=== PATIENT | male | born 1950 | race Caucasian/White ===

== ENCOUNTER 2017-06-09 10:06 | Emergency (ER) | payer MEDICARE, OTHER, SELFPAY ==
[2017-06-09 10:07] VITALS: BP 164/91; PULSE 120; RESP 20; TEMP 37.1; O2SAT 97; BMI 38.0
--- NOTE | 2017-06-09 10:15 | EKG12_ITS ---
Test Reason : CP Blood Pressure : / mmHG Vent. Rate : 105 BPM Atrial Rate : 105 BPM P-R Int : 140 ms QRS Dur : 080 ms QT Int : 338 ms P-R-T Axes : 045 017 042 degrees QTc Int : 446 ms Sinus tachycardia Confirmed by CRISTINO BEEBE, ALIDA ([id number]), editorial assistant MAO AQUINO ([id number]) on 06/11/2017 1:15:29 PM Referred By: ROMINA/RICARDO Confirmed By:ALIDA GREGG MD
--- NOTE | 2017-06-09 10:20 | RAD_ITS ---
STUDY: X-RAY CHEST REASON FOR EXAM: Male, 67 years old. Chest pain and chest pressure. TECHNIQUE: Single AP portable view of the chest. COMPARISON: None. FINDINGS: EKG electrodes are seen. Mild increased linear markings at the left lung base suggestive of left basilar atelectasis and/or scarring. There is no demonstrated pleural abnormality. Normal size heart. Normal mediastinum and roxy. Normal visualized pulmonary arteries. There is atherosclerotic tortuosity of the aortic arch and descending thoracic aorta. Mild dextroscoliosis. Healed right midclavicular fracture with deformity. There is no demonstrated abnormality of the visualized soft tissue structures of the upper abdomen. RAD/Chest 1 View (Portable) IMPRESSION: Mild increased markings at the left lung base suggestive linear atelectasis and/or scarring. Electronically Signed: Nelson Dwyer MD at 10:40 EST Tel [phone], Service support ,
--- NOTE | 2017-06-09 10:20 | ED.VISSUMM ---
- ER Visit Summary Date of Service: 06/09/17 Chief Complaint: Chest pain History of Present Illness: The patient is a 67 M who reports a soreness across his chest for the past 3-4 days. Patient states pain is worse with movement or with palpation. He does have increased pain with a deep breath but denies feeling short of breath. He reports having a stress test at [facility] a couple months ago that was normal. Past history significant for liver transplant in 2009. Physical Examination: Vital signs include a blood pressure 164/91, temperature 98.8, heart rate 120, respiratory rate 20, pulse ox 97% on room air. The time of my examination his heart rate is 105. Head neck examination is unremarkable. Heart is regular but slightly tachycardic. Lung sounds are clear. He does have reproducible chest wall tenderness over the sternal area. Extremity examination reveals strong distal pulses throughout. Test Results: EKG is sinus tach at 105 with no sign of acute ischemia. Portal chest x-ray shows mild increased markings the left lung base suggestive of linear atelectasis or scarring. CBC was white count 12.2 with 80% neutrophils. Chemistry studies are unremarkable. LFTs are significant only for an alk phos of 158. Troponin is less than 0.02. Emergency Department Course and Treatment: Patient was given aspirin along with morphine and Zofran. On repeat evaluation patient's heart rate is in the upper 80s. He is resting comfortably. I was able to get copies of his stress echo from January 07, 2017. This was normal. As the patient has reproducible chest wall pain, 3 days of pain with negative labs and EKG, and a negative stress test 5 months ago, I do not feel he needs to be admitted for further cardiac evaluation. I do feel his symptoms are consistent with chest wall strain. This was discussed with patient and family at bedside. Treatment Plan: [] Disposition: Discharge Impression: Chest wall pain This note was generated with [employer] dictation software. It may contain incorrect words, spelling, and punctuation that were not noted in review of the chart prior to signing ED Disposition - Plan for ED Patient: Disposition: Home or Assisted Living Chief Complaint: Chest Pain Instructions: ED Strain Chest Wall Referrals: Usman Langfodr MD [Primary Care Provider] - 1-2 Weeks Additional Instructions: Return to ED immediately for worsening symptoms or if any other concerns arise.
[2017-06-09] MEDS: Aspirin 81 MG TAB.CHEW 324 MG PO (10:40)
[2017-06-09] MEDS: 0.9% Normal Saline 1,000 ML 150 ML IV (10:42)
[2017-06-09] MEDS: Ondansetron 4 MG/2 ML Vial IV (10:42)
[2017-06-09 10:48] VITALS: BP 136/84; PULSE 114; RESP 18; O2SAT 98; O2SAT 99
[2017-06-09 11:04] LABS: Absolute Lymphocyte Count 1.16 X10^3/ul (0.83-4.51); Absolute Neutrophil Count 9.8 X10^3/uL (2.0-7.7); Basophil# 0.03 X10^3/uL; Basophil% 0.2 % (0-1); Eosinophils% 0.8 % (0-5); Hematocrit 42.3 % (40-54); Hemoglobin 14.3 g/dl (13.0-16.5); Lymphocyte # 1.16 X10^3/ul (4.0); Lymphocyte % 9.5 % (19-41); Mean Corp Hgb Conc 33.8 g/gl (32-36); Mean Corpuscular Hgb 26.4 pg (27.0-32.0); Mean Corpuscular Volume 78.2 fL (80-94); Mean Platelet Vol. 10.9 fl (6.2-12.0); Monocyte# 1.09 X10^3/uL; Monocyte% 8.9 % (0-10); Neutrophil # 9.77 X10^3/uL (2.7-7.7); Neutrophil % 80.3 % (47-70); Platelet Count 184 K/mm3 (150-450); RBC Distribution Width CV 14.9 % (11.6-14.6); RBC Distribution Width SD 42.4 fl (35.1-43.9); Red Blood Count 5.41 M/mm3 (4.6-6.2); White Blood Count 12.2 K/mm3 (4.4-11.0)
[2017-06-09 11:06] LABS: POSITIVE COUNT NO; POSITIVE DIFFERENTIAL NO; POSITIVE MORPHOLOGY NO
[2017-06-09 11:14] LABS: AST(SGOT) 36 U/L (15-37); Alanine Aminotransfer ALT/SGPT 48 U/L (16-61); Albumin, Serum 3.4 g/dL (3.2-5.0); Alkaline Phosphatase 158 U/L (45-117); Anion Gap 8 (5-15); BUN 18 mg/dL (7-18); BUN/Creat Ratio 16.4 RATIO (10-20); Bilirubin, Direct 0.22 mg/dL (0.00-0.30); Calcium,Total 8.4 mg/dL (8.5-10.1); Chloride 103 mmol/L (98-107); EST Glomerular Filtration Rate 71 mL/min (>60); Est Glom Filt Rate - Afr Amer 86 mL/min (>60); Estimated Creatinine Clearance 72.51 ml/min; Globulin 4.7 g/dL (2.2-4.2); Glucose 118 mg/dL (74-106); Protein, Total 8.1 g/dL (6.4-8.2); Sodium Level 136 mmol/L (136-145)
--- NOTE | 2017-06-09 11:52 | ED.DEP ---
ED Disposition - Plan for ED Patient: Disposition: Home or Assisted Living Chief Complaint: Chest Pain Instructions: ED Strain Chest Wall Referrals: Usman Langford MD [Primary Care Provider] - 1-2 Weeks Additional Instructions: Return to ED immediately for worsening symptoms or if any other concerns arise.
[2017-06-09 11:59] VITALS: BP 100/85; PULSE 96; RESP 18; O2SAT 100
== END 2017-06-09 12:00 | disposition home or self-care (01) ==
PROVIDERS: Emergency Provider Emergency Medicine; Family Provider Internal Medicine; PCP Internal Medicine
DX: R07.89 Other chest pain (principal); N40.0 Benign prostatic hyperplasia without lower urinary tract symptoms; M54.9 Dorsalgia, unspecified; G47.33 Obstructive sleep apnea (adult) (pediatric); K21.9 Gastro-esophageal reflux disease without esophagitis; E66.9 Obesity, unspecified; Z72.0 Tobacco use; Z79.899 Other long term (current) drug therapy; Z94.4 Liver transplant status
CPT/HCPCS: 36415; 71045; 80048; 80076; 84484; 85025; 93005; 96361; 96374; 96375; 99284; J7030; A4216; J2405

== ENCOUNTER 2018-08-07 08:15 | Emergency (ER) | payer MEDICARE, OTHER, SELFPAY ==
[2018-08-07 08:16] VITALS: BP 165/102; PULSE 91; RESP 20; TEMP 36.8; O2SAT 96; BMI 37.3
--- NOTE | 2018-08-07 08:33 | ED.DCSUM_ITS ---
- ER Visit Summary Date of Service: 08/07/18 Chief Complaint: Sore throat History of Present Illness: The patient is a [address] Langford. He reports his sore throat began yesterday. He has had a subjective fever and sweats. Reports that his throat pain is 5 out of 10 severity. He also complain s of nasal congestion and sinus drainage. He denies any cough or shortness of breath. Does report is been nauseated from the sinus drainage and had dry heaves. No abdominal pain. No vomiting or diarrhea. Is a headache is 5-10 severity. Of note the patient has a history of a liver transplant 8 years ago at [facility]. He is currently on Prograf and Bactrim. Physical Examination: Vitals: Stable. Afebrile. General: Well-nourished and well-developed. Head: Normocephalic atraumatic. HEENT: Pharyngeal erythema. No tonsillar exudate or enlargement. No peritonsillar abscess. He does have tender anterior lymphadenopathy. Neck: Supple, No JVD. Nontender. Cardiovascular: Regular rate and rhythm. No murmurs. Respiratory: No respiratory distress. Clear to auscultation bilaterally. Abdominal: Soft, nontender, nondistended, normal bowel sounds. No guarding, rebound, or peritoneal signs. Back: Nontender. Extremities: Nontender, no edema. Skin: Normal color, no rash. Neurologic: Alert and oriented ?3. Cranial nerves II through XII are intact. Normal strength and sensation. Psych: Normal affect. Emergency Department Course and Treatment: I had a prolonged discussion with the patient about the utility of a rapid strep. He would like to be on antibiotics regardless of the results of the rapid strep while he waits for the throat culture. Because of this this was not obtained. The patient was given a dose of oxycodone and amoxicillin p.o. Treatment Plan: Patient will be discharged on amoxicillin. Instructed to follow-up his primary care physician 1 week if not improving. Return to the emergency department for any worsening symptoms. Disposition: To home in improved and stable condition. Impression: 1. Pharyngitis. 2. History of liver transplant on immunosuppressants. This note was generated with [employer] dictation software. It may contain incorrect words, spelling, and punctuation that were not noted in review of the chart prior to signing ED Disposition - Plan for ED Patient: Disposition: Home or Assisted Living Instructions: ED Strep Pharyngitis Poss Prescriptions: Amoxicillin 500 mg PO TID #30 tablet Referrals: Usman Langford MD [Primary Care Provider] - 1 Week if not improving
[2018-08-07] MEDS: oxyCODONE 5 MG Tablet PO (08:50)
[2018-08-07] MEDS: AMOXICILLIN 500 MG CAPSULE PO (08:50)
== END 2018-08-07 08:57 | disposition home or self-care (01) ==
LOC: ED 08:51
PROVIDERS: Emergency Provider Emergency Medicine; Family Provider Internal Medicine; PCP Internal Medicine
DX: J02.9 Acute pharyngitis, unspecified (principal); R51 Headache; R11.0 Nausea; K21.9 Gastro-esophageal reflux disease without esophagitis; Z72.0 Tobacco use; Z79.899 Other long term (current) drug therapy; Z86.19 Personal history of other infectious and parasitic diseases; Z94.4 Liver transplant status
CPT/HCPCS: 99283

== ENCOUNTER 2018-10-05 10:33 | Day surgery (SDC) | payer MEDICARE, OTHER, SELFPAY ==
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
[2018-10-05] VITALS (7 sets, daily range): BP systolic 88–159; BP diastolic 58–82; PULSE 73–85; RESP 16–18; TEMP 36.2–36.3; O2SAT 96–100; BMI 38.0
--- NOTE | 2018-10-05 12:51 | OP.ENDO_ITS ---
10/05/2018 Usman Langford [address] [place] [place] [address] Re : Colonoscopy procedure for Franc Lujan Dear Dr. Langford This procedure was performed on Friday, October 05, 2018. My impressions and recommendations are as follows: Impressions : - The entire examined colon is normal on direct and retroflexion views. - No specimens collected. Recommendations : - Discharge patient to home. - Resume previous diet. - Continue present medications. - Repeat colonoscopy in 5 years for surveillance. My findings are described in the full procedure note, which is enclosed. If I can be of further assistance, please feel free to contact me at Doctor phone number(s): , Work: . Sincerely, Sukhi Hernandez MD 10/05/2018 12:50:48 PM This report has been signed electronically.
== END 2018-10-05 13:45 | disposition home or self-care (01) ==
LOC: EN 10:35 → AC 10:36
PROVIDERS: Family Provider Internal Medicine; PCP Internal Medicine; Referring Provider Surgery; Visit Provider Surgery
PROC: 0DJD8ZZ Inspection of Lower Intestinal Tract, Via Natural or Artificial Opening Endoscopic (ICD-10-PCS; CPT 45378; principal; 2018-10-05 11:40)
DX: Z12.11 Encounter for screening for malignant neoplasm of colon (principal); Z86.010 Personal history of colon polyps; I12.9 Hypertensive chronic kidney disease with stage 1 through stage 4 chronic kidney disease, or unspecified chronic kidney disease; N18.3 Chronic kidney disease, stage 3 (moderate); E78.5 Hyperlipidemia, unspecified; I87.2 Venous insufficiency (chronic) (peripheral); G47.33 Obstructive sleep apnea (adult) (pediatric); G89.29 Other chronic pain; F43.21 Adjustment disorder with depressed mood; E66.9 Obesity, unspecified; Z79.899 Other long term (current) drug therapy; Z94.4 Liver transplant status; Z88.8 Allergy status to other drugs, medicaments and biological substances; Z87.891 Personal history of nicotine dependence; Z86.19 Personal history of other infectious and parasitic diseases
CPT/HCPCS: G0105; J7120

== ENCOUNTER 2019-03-06 08:48 | Emergency (ER) | payer MEDICARE, OTHER, SELFPAY ==
[2018-10-05 10:51] VITALS: BMI 38.0
[2019-03-06 08:49] VITALS: BP 159/95; PULSE 115; RESP 16; TEMP 36.1; O2SAT 97; BMI 37.0
--- NOTE | 2019-03-06 09:04 | RAD_ITS ---
STUDY: X-RAY - LEFT RADIUS AND ULNA REASON FOR EXAM: Male, 68 years old. Pain following a fall. TECHNIQUE: 2 view(s) of the forearm. COMPARISON: None. FINDINGS: There is no demonstrated soft tissue swelling. Normal visualized radius. Normal visualized ulna. RAD/Forearm 2 Views IMPRESSION: Normal x-ray examination of the radius and ulna. Electronically Signed: Nelson Dwyer, at 9:57 EST , Service support ,
--- NOTE | 2019-03-06 09:04 | RAD_ITS ---
STUDY: X-RAY - LEFT KNEE REASON FOR EXAM: Male, 68 years old. Pain following a fall. TECHNIQUE: 4 view(s) of the knee. COMPARISON: None. FINDINGS: Normal visualized distal femur. Normal visualized proximal tibia and fibula. Normal proximal tibiofibular articulation. Normal medial femorotibial compartment. Normal lateral femorotibial compartment. Normal patellofemoral articulation. Minimal joint effusion. RAD/Knee 4 or More Views IMPRESSION: Minimal joint effusion. Electronically Signed: Nelson Dwyer, at 9:58 EST , Service support ,
--- NOTE | 2019-03-06 09:04 | RAD_ITS ---
STUDY: X-RAY - LEFT HUMERUS REASON FOR EXAM: Male, 68 years old. Pain following a fall. TECHNIQUE: 2 view(s) of the humerus. COMPARISON: None. FINDINGS: Normal visualized humerus. There is no demonstrated fracture or osseous destructive process. There is no demonstrated soft tissue abnormality. RAD/Humerus min 2 Views IMPRESSION: Normal x-ray examination of the humerus. Electronically Signed: Nelson Dwyer, at 9:58 EST , Service support ,
--- NOTE | 2019-03-06 09:04 | RAD_ITS ---
STUDY: X-RAY - LUMBAR SPINE REASON FOR EXAM: Male, 68 years old. Low back pain following a fall. TECHNIQUE: 3 view(s) of the lumbar spine were obtained. COMPARISON: None FINDINGS: Normal lumbar lordosis. There is a levoscoliosis of the lumbar spine. There is a normal alignment of the vertebrae. Normal vertebral bodies and endplates. There is multi-level degenerative disc disease with multi-level disc space narrowing. Facet joint osteoarthritis. There is atherosclerotic calcification of the abdominal aorta without a demonstrated aneurysm. RAD/Lumbar Spine 2 or 3 Views IMPRESSION: Degenerative changes of the spine, as detailed above. Levoscoliosis. Electronically Signed: Nelson Dwyer, at 10:00 EST , Service support ,
--- NOTE | 2019-03-06 09:05 | ED.DCSUM_ITS ---
History of Present Illness Chief Complaint: Fall Detail of Chief Complaint: Fall down 5 steps Informant: Patient Onset: Hours - 5 hours prior to arrival Current Severity: Moderate Maximum Severity: Moderate Narrative: On 5 steps in his home earlier this morning. He is complaining of pain to his left arm, right shoulder, back, and left knee. He states he did strike his head but he has no headache and there was no loss of consciousness. He does not take anticoagulants. He has been able to ambulate and is able to use both arms. - Past Medical History (1) Liver transplant recipient Status: Chronic (2) GERD (gastroesophageal reflux disease) Status: Chronic (3) BPH (benign prostatic hyperplasia) Status: Chronic (4) Back pain Status: Chronic Past Medical History - Allergies and Home Meds Allergies/Adverse Reactions: Allergies trazodone Allergy (Verified 03/06/19 08:49) Nausea/Vom/Diarrhea Primary Care Physician: Usman Langford MD [Primary Care Provider] - Prior records reviewed: Yes Surgical History: - - Liver transplant Lives: Spouse/ Significant Other Smoking Status: Current every day smoker Review of Systems General: Denies: Chills, Fever Eyes: Denies: Visual changes - bilaterally ENT: Denies: Bilateral ear pain Cardiovascular: Denies: Chest pain Respiratory: Denies: Dyspnea, Cough Gastrointestinal: Denies: Abdominal pain, Vomiting Musculoskeletal: Reports: Back pain, Extremity Pain. Denies: Swelling Skin: Denies: Rash, Abrasions Neurological: Denies: Headache, Weakness, Parasthesia Hematologic: Denies: Easy bruising Physical Exam Vital Signs/Narrative: Vital Signs Temp Pulse Resp BP Pulse Ox 03/06/19 08:49 97.0 F L 115 H 16 159/95 H 97 Inital Vital Signs reviewed: Yes General: Well nourished, Well developed Head: Normocephalic ENT: Moist mucous membranes Neck: Supple, - - No C-spine tenderness Cardiovascular: Regular rate, Regular rhythm Respiratory: No distress, CTA bilaterally Abdomen: Soft, Nontender Extremities: - - Reproducible tenderness around the right shoulder with no obvious sign of dislocation. Strong distal pulses and strong hand grasp. Patient has diffuse tenderness of the distal left humerus and proximal left forearm. He is able to pronate and supinate without difficulty. Strong distal pulses are noted. Patient has tenderness around the left knee, worse over the infrapatellar tendon. Good range of motion and ligaments are tight on testing. Skin: Normal color Neurological: Alert, Oriented x3, Normal Strength, Normal Sensation Psychological: Normal affect Diagnostic/Tx/Re-eval Impressions Forearm X-Ray 03/06/19 09:04 IMPRESSION: Normal x-ray examination of the radius and ulna. Electronically Signed: Nelson Fierrojag, at 9:57 EST , Service support , Humerus X-Ray 03/06/19 09:04 IMPRESSION: Normal x-ray examination of the humerus. Electronically Signed: Nelson Reymundo, at 9:58 EST , Service support , Knee X-Ray 03/06/19 09:04 IMPRESSION: Minimal joint effusion. Electronically Signed: Nelson Reymundo, at 9:58 EST , Service support , Lumbar Spine X-Ray 03/06/19 09:04 IMPRESSION: Degenerative changes of the spine, as detailed above. Levoscoliosis. Electronically Signed: Nelson Reymundo, at 10:00 EST , Service support , Shoulder X-Ray 03/06/19 09:05 IMPRESSION: No acute abnormality is seen. Nonhealed right midclavicular fracture. Electronically Signed: Nelson Reymundo, at 9:59 EST , Service support , 03/06/19 09:04 Forearm 2 Views [RAD] Stat Humerus min 2 Views [RAD] Stat Knee 4 or More Views [RAD] Stat Lumbar Spine 2 or 3 Views [RAD] Stat 03/06/19 09:05 Shoulder min 2 Views [RAD] Stat - Medical Decision Making Patient was given a tab of oxycodone for pain. X-rays are reviewed with him. He has had a chronic nonhealed clavicle fracture for several years. Patient continues to complain of right shoulder pain primarily. He will be given a sli ng and referred to orthopedics if not improving. I did advise him that I cannot rule out a ligament or tendon tear. He has oxycodone at home that he will take for pain. ED Disposition - Plan for ED Patient: Disposition: Home or Assisted Living Diagnosis: Fall, Shoulder contusion, Left elbow contusion Instructions: FALL, Mechanical, Shoulder Sprain Referrals: Wes Pelletier MD [STAFF PHYSICIAN] - As Needed
--- NOTE | 2019-03-06 09:05 | RAD_ITS ---
STUDY: X-RAY - RIGHT SHOULDER REASON FOR EXAM: Male, 68 years old. Shoulder pain following a fall. TECHNIQUE: 4 view(s) of the shoulder. COMPARISON: None. FINDINGS: Normal glenohumeral articulation. Normal acromioclavicular joint. Normal acromion. Nonhealed mid right clavicular fracture. Normal humeral head and visualized proximal humerus. The soft tissue structures are unremarkable. Normal visualized pulmonary apex. RAD/Shoulder min 2 Views IMPRESSION: No acute abnormality is seen. Nonhealed right midclavicular fracture. Electronically Signed: Nelson Dwyer, at 9:59 EST , Service support ,
[2019-03-06] MEDS: oxyCODONE 5 MG Tablet PO (09:10)
[2019-03-06 09:15] VITALS: BP 141/96; PULSE 121; RESP 18; O2SAT 97
[2019-03-06 10:36] VITALS: BP 131/103; PULSE 126; RESP 20; O2SAT 97
== END 2019-03-06 10:37 | disposition home or self-care (01) ==
PROVIDERS: Emergency Provider Emergency Medicine; Family Provider Internal Medicine; PCP Internal Medicine
DX: S50.02XA Contusion of left elbow, initial encounter (principal); S40.011A Contusion of right shoulder, initial encounter; M25.562 Pain in left knee; M54.9 Dorsalgia, unspecified; W10.9XXA Fall (on) (from) unspecified stairs and steps, initial encounter; Y93.9 Activity, unspecified; Y92.9 Unspecified place or not applicable; Y99.9 Unspecified external cause status; N40.0 Benign prostatic hyperplasia without lower urinary tract symptoms; K21.9 Gastro-esophageal reflux disease without esophagitis; F17.200 Nicotine dependence, unspecified, uncomplicated; Z79.899 Other long term (current) drug therapy; Z94.4 Liver transplant status
CPT/HCPCS: 72100; 73030; 73060; 73090; 73564; 99282

== ENCOUNTER 2019-06-02 13:38 | Emergency (ER) | payer MEDICARE, OTHER, SELFPAY ==
[2019-06-02 13:39] VITALS: BP 136/88; PULSE 127; RESP 16; TEMP 36.9; O2SAT 98; BMI 34.2
[2019-06-02 13:51] VITALS: PULSE 126; O2SAT 96
--- NOTE | 2019-06-02 14:15 | RAD_ITS ---
STUDY: X-RAY CHEST REASON FOR EXAM: Male, 69 years old. Dyspnea x 2 weeks -- chemo for liver CA TECHNIQUE: AP and lateral views of the chest. COMPARISON: Comparison is made with prior study dated June 09, 2017. FINDINGS: EKG electrodes are seen. The lungs are clear and expanded. Stable minimal thickening of the right minor fissure. Normal size heart. Normal mediastinum and roxy. Normal visualized pulmonary arteries. There is atherosclerotic tortuosity of the aortic arch and descending thoracic aorta. Normal visualized thoracic spine. Normal visualized ribs, clavicles, and shoulders. There is no demonstrated abnormality of the visualized soft tissue structures of the upper abdomen. RAD/Chest PA and Lateral IMPRESSION: No acute abnormality is seen. Electronically Signed: Nelson Dwyer, at 15:11 EST , Service support ,
[2019-06-02] MEDS: Ipratropium/Albuterol Sulfate 3 ML AMPUL.NEB INHALATION (14:26)
[2019-06-02 14:27] VITALS: PULSE 124; RESP 13; O2SAT 96
--- NOTE | 2019-06-02 14:32 | EKG12_ITS ---
Test Reason : SOB Blood Pressure : / mmHG Vent. Rate : 123 BPM Atrial Rate : 123 BPM P-R Int : 140 ms QRS Dur : 086 ms QT Int : 316 ms P-R-T Axes : 045 024 045 degrees QTc Int : 452 ms Sinus tachycardia Otherwise normal ECG Confirmed by CECILIO BRASWELL ([id number]), supervising film or videotape editor MAO AQUINO ([id number] on 06/05/2019 3:38:34 PM Referred By: EKATERINA Confirmed By:CECILIO BRASWELL
[2019-06-02 14:39] LABS: Hematocrit 32.7 % (40-54); Hemoglobin 10.7 g/dL (13.0-16.5); Mean Corp Hgb Conc 32.7 g/dL (32-36); Mean Corpuscular Hgb 25.5 pg (27.0-32.0); Mean Corpuscular Volume 77.9 fL (80-94); Mean Platelet Vol. 10.7 fl (6.2-12.0); POSITIVE COUNT YES; POSITIVE MORPHOLOGY YES; Platelet Count 283 K/mm3 (150-450); RBC Distribution Width SD 52.3 fl (35.1-43.9); White Blood Count 16.5 K/mm3 (4.4-11.0)
[2019-06-02 14:47] LABS: Differential Indicated MANUAL DIFF
[2019-06-02 15:13] LABS: Lymphocyte 5 % (19-41); Monocyte 6 % (0-10); Myelocyte 1 (0-0); Neutrophil-Segmented 86 % (47-70); Platelet Estimate ADEQUATE (ADEQ); Promyelocyte 2 (0-0); Red Cell Morphology NORM C+C NORMAL (NORM C&C); Target Cells 1+; Total Cells Counted 100 (MANUAL DIFF)
[2019-06-02 15:16] LABS: Absolute Neutrophil Count 14.2 X10^3/uL (2.0-7.7)
[2019-06-02 15:17] LABS: Absolute Lymphocyte Count 0.82 X10^3/uL (0.83-4.51); Lymphocyte # 0.82 X10^3/ul (4.0); Platelet Morphology LARGE
[2019-06-02] MEDS: 0.9% Normal Saline 1,000 ML 1000 ML IV (15:23)
[2019-06-02 15:43] VITALS: BP 137/93; PULSE 114; RESP 24; O2SAT 94
[2019-06-02 15:50] LABS: ALB/GLOB Ratio 0.4 RATIO (0.9-2.4); AST(SGOT) 308 U/L (15-37); Alanine Aminotransfer ALT/SGPT 73 U/L (16-61); Alkaline Phosphatase 1089 U/L (45-117); Anion Gap 7 (5-15); BUN 17 mg/dL (7-18); BUN/Creat Ratio 15.3 RATIO (10-20); Calcium,Total 8.4 mg/dL (8.5-10.1); Chloride 101 mmol/L (98-107); Creatinine, Serum 1.11 mg/dL (0.70-1.30); EST Glomerular Filtration Rate 70 mL/min (>60); Est Glom Filt Rate - Afr Amer 85 mL/min (>60); Estimated Creatinine Clearance 69.91 ml/min; Globulin 4.7 g/dL (2.2-4.2); Glucose 115 mg/dL (74-106); Potassium 4.3 mmol/L (3.5-5.1); Protein, Total 6.7 g/dL (6.4-8.2); Sodium Level 131 mmol/L (136-145)
[2019-06-02 16:24] VITALS: BP 152/99; PULSE 109; RESP 24; O2SAT 95
[2019-06-02] MEDS: oxyCODONE 5 MG Tablet PO (16:29)
--- NOTE | 2019-06-02 17:02 | ED.VISSUMM ---
- ER Visit Summary Date of Service: 06/02/19 Chief Complaint: Shortness of breath History of Present Illness: The patient is a 69 M who presents with shortness of breath that has been getting progressively worse over the past 2 days. Patient states his breathing is worse with movement and exertion. Patient denies any chest pain. Patient states he feels out of breath when he walks across the room. Patient denies any fevers or chills. Patient denies any cough. Patient denies any nausea or vomiting. Patient denies any lower extremity edema. Patient has a history of a liver transplant and subsequent liver cancer. Patient is being treated for his liver cancer at the [facility]. Patient states his liver enzymes have been increasing lately. Physical Examination: Vital signs are stable except for mild tachycardia of 127. Patient is afebrile. Patient is in no acute distress. Oral mucosa is pink and moist. Pupils are equal, round, and reactive to light bilaterally. There is scleral icterus noted. Neck is supple. Trachea is midline. There is no JVD noted. Heart was regular and tachycardic. Lungs are clear and equal bilaterally. Abdomen is soft. Bowel sounds are normal. There is some ascites noted. There is no tenderness. Cranial nerves II through XII are intact. There are no focal motor or sensory deficits noted. Test Results: CBC shows a mild leukocytosis of 16.5. Comprehensive metabolic profile shows an elevated bilirubin of 2.8. Alk phos was elevated at 1089, ALT was 73, and AST was 308. PA and lateral chest x-ray was obtained. There is no acute cardiopulmonary process. This was interpreted by the radiologist and myself. EKG showed a sinus tachycardia with a rate of 123. There are no acute ST or T wave changes noted. Emergency Department Course and Treatment: Patient was given a DuoNeb here. Patient was still having some shortness of breath on reevaluation but he states he wants to go home. Patient states he feels well enough to go home. Patient was instructed to follow-up with his primary care physician and as well as his cancer physician and transplant physician as scheduled. Patient understands and is agreeable with the plan. Patient was instructed to return if his breathing is worse. All questions were answered. Disposition: Discharge home Impression: Dyspnea This note was generated with [employer] software. It may contain incorrect words, spelling, and punctuation that were not noted in review of the chart prior to signing ED Disposition - Plan for ED Patient: Disposition: Home or Assisted Living Diagnosis: Dyspnea Instructions: ED Dyspnea Referrals: Usman Langford MD [Primary Care Provider] - 3-5 Days
[2019-06-05 14:34] LABS: Pathologist Review Reviewed
== END 2019-06-02 17:15 | disposition home or self-care (01) ==
PROVIDERS: Emergency Provider Emergency Medicine; PCP Internal Medicine
DX: R06.09 Other forms of dyspnea (principal); C22.9 Malignant neoplasm of liver, not specified as primary or secondary; R18.8 Other ascites; R00.0 Tachycardia, unspecified; Z79.899 Other long term (current) drug therapy; Z94.4 Liver transplant status
CPT/HCPCS: 71046; 80053; 85025; 93005; 94640; 96360; 96361; 99285; J7030; A4216

== ENCOUNTER → 2019-07-31 04:13 | Outpatient (CLI) | payer MEDICARE, OTHER, SELFPAY ==
[2019-07-31 08:45] LABS: Absolute Lymphocyte Count 0.87 X10^3/uL (0.83-4.51); Basophil# 0.03 X10^3/uL; Basophil% 0.5 % (0-1); Eosinophil# 0.08 X10^3/uL; Eosinophils% 1.2 % (0-5); Hematocrit 38.1 % (40-54); Hemoglobin 12.1 g/dL (13.0-16.5); Lymphocyte # 0.87 X10^3/ul (4.0); Lymphocyte % 13.4 % (19-41); Mean Corp Hgb Conc 31.8 g/dL (32-36); Mean Corpuscular Volume 81.9 fL (80-94); Mean Platelet Vol. 11.3 fl (6.2-12.0); Monocyte# 0.42 X10^3/uL; Monocyte% 6.5 % (0-10); NRBC Flagged by Analyzer 0 % (0-5); Neutrophil # 5.04 X10^3/uL (2.7-7.7); Neutrophil % 77.9 % (47-70); Platelet Count 156 K/mm3 (150-450); RBC Distribution Width CV 19.6 % (11.6-14.6); RBC Distribution Width SD 57.5 fl (35.1-43.9); Red Blood Count 4.65 M/mm3 (4.6-6.2); White Blood Count 6.5 K/mm3 (4.4-11.0)
[2019-07-31 09:04] LABS: ALB/GLOB Ratio 0.5 RATIO (0.9-2.4); AST(SGOT) 85 U/L (15-37); Alanine Aminotransfer ALT/SGPT 38 U/L (16-61); Albumin, Serum 2.3 g/dL (3.2-5.0); Alkaline Phosphatase 660 U/L (45-117); Anion Gap 7 (5-15); BUN 14 mg/dL (7-18); BUN/Creat Ratio 13.9 RATIO (10-20); Calcium,Total 8.6 mg/dL (8.5-10.1); Chloride 106 mmol/L (98-107); Creatinine, Serum 1.01 mg/dL (0.70-1.30); EST Glomerular Filtration Rate 78 mL/min (>60); Est Glom Filt Rate - Afr Amer 94 mL/min (>60); GGTP 373 U/L (15-85); Globulin 4.7 g/dL (2.2-4.2); Glucose 116 mg/dL (74-106); Magnesium 1.4 mg/dL (1.6-2.6); Phosphorus 2.3 mg/dL (2.5-4.9); Potassium 3.8 mmol/L (3.5-5.1); Sodium Level 138 mmol/L (136-145)
[2019-07-31 09:27] LABS: Prograf-FK506 TO CCF/UNIV MAILED SPECIMEN
== END ==
PROVIDERS: PCP Internal Medicine
DX: Z48.23 Encounter for aftercare following liver transplant (principal); K76.9 Liver disease, unspecified; Z94.4 Liver transplant status; Z41.8 Encounter for other procedures for purposes other than remedying health state; E61.2 Magnesium deficiency; E83.30 Disorder of phosphorus metabolism, unspecified
CPT/HCPCS: 36415; 80053; 82977; 83735; 84100; 85025

== ENCOUNTER → 2019-08-14 | Outpatient (CLI) | payer MEDICARE, OTHER, SELFPAY ==
[2019-08-14 08:57] LABS: Absolute Lymphocyte Count 1.05 X10^3/uL (0.83-4.51); Absolute Neutrophil Count 5.9 X10^3/uL (2.0-7.7); Basophil# 0.04 X10^3/uL; Basophil% 0.5 % (0-1); Eosinophil# 0.09 X10^3/uL; Eosinophils% 1.2 % (0-5); Hematocrit 38.9 % (40-54); Hemoglobin 12.5 g/dL (13.0-16.5); Lymphocyte # 1.05 X10^3/ul (4.0); Lymphocyte % 13.9 % (19-41); Mean Corp Hgb Conc 32.1 g/dL (32-36); Mean Corpuscular Hgb 25.9 pg (27.0-32.0); Mean Corpuscular Volume 80.7 fL (80-94); Mean Platelet Vol. 10.9 fl (6.2-12.0); Monocyte# 0.44 X10^3/uL; Monocyte% 5.8 % (0-10); NRBC Flagged by Analyzer 0 % (0-5); Neutrophil # 5.91 X10^3/uL (2.7-7.7); Neutrophil % 78.2 % (47-70); Platelet Count 161 K/mm3 (150-450); RBC Distribution Width CV 19.5 % (11.6-14.6); RBC Distribution Width SD 56.2 fl (35.1-43.9); Red Blood Count 4.82 M/mm3 (4.6-6.2); White Blood Count 7.6 K/mm3 (4.4-11.0)
[2019-08-14 09:46] LABS: Prograf-FK506 TO CCF/UNIV MAILED SPECIMEN
[2019-08-14 11:22] LABS: ALB/GLOB Ratio 0.5 RATIO (0.9-2.4); AST(SGOT) 113 U/L (15-37); Alanine Aminotransfer ALT/SGPT 53 U/L (16-61); Albumin, Serum 2.5 g/dL (3.2-5.0); Alkaline Phosphatase 670 U/L (45-117); Anion Gap 7 (5-15); BUN 16 mg/dL (7-18); BUN/Creat Ratio 17.4 RATIO (10-20); Calcium,Total 8.9 mg/dL (8.5-10.1); Chloride 107 mmol/L (98-107); Creatinine, Serum 0.92 mg/dL (0.70-1.30); EST Glomerular Filtration Rate 87 mL/min (>60); Est Glom Filt Rate - Afr Amer 105 mL/min (>60); GGTP 405 U/L (15-85); Globulin 4.7 g/dL (2.2-4.2); Glucose 130 mg/dL (74-106); Magnesium 1.4 mg/dL (1.6-2.6); Phosphorus 2.5 mg/dL (2.5-4.9); Protein, Total 7.2 g/dL (6.4-8.2); Sodium Level 138 mmol/L (136-145)
== END | disposition home or self-care (01) ==
PROVIDERS: PCP Internal Medicine
DX: C22.0 Liver cell carcinoma (principal); K76.9 Liver disease, unspecified; Z48.23 Encounter for aftercare following liver transplant; Z94.4 Liver transplant status; Z41.8 Encounter for other procedures for purposes other than remedying health state; E61.2 Magnesium deficiency; E83.30 Disorder of phosphorus metabolism, unspecified; R73.02 Impaired glucose tolerance (oral)
CPT/HCPCS: 36415; 80053; 82105; 82977; 83735; 84100; 85025

== ENCOUNTER → 2019-08-28 04:22 | Outpatient (CLI) | payer MEDICARE, OTHER, SELFPAY ==
[2019-08-28 08:21] LABS: Absolute Neutrophil Count 5.1 X10^3/uL (2.0-7.7); Basophil# 0.04 X10^3/uL; Basophil% 0.6 % (0-1); Eosinophil# 0.08 X10^3/uL; Eosinophils% 1.2 % (0-5); Hematocrit 39.3 % (40-54); Hemoglobin 12.7 g/dL (13.0-16.5); Lymphocyte % 15.1 % (19-41); Mean Corp Hgb Conc 32.3 g/dL (32-36); Mean Corpuscular Hgb 26.2 pg (27.0-32.0); Mean Corpuscular Volume 81.2 fL (80-94); Mean Platelet Vol. 11.1 fl (6.2-12.0); Monocyte# 0.39 X10^3/uL; Monocyte% 5.9 % (0-10); NRBC Flagged by Analyzer 0 % (0-5); Neutrophil % 76.9 % (47-70); Platelet Count 156 K/mm3 (150-450); RBC Distribution Width CV 19.9 % (11.6-14.6); RBC Distribution Width SD 56.4 fl (35.1-43.9); Red Blood Count 4.84 M/mm3 (4.6-6.2); White Blood Count 6.6 K/mm3 (4.4-11.0)
[2019-08-28 08:43] LABS: ALB/GLOB Ratio 0.5 RATIO (0.9-2.4); AST(SGOT) 123 U/L (15-37); Alanine Aminotransfer ALT/SGPT 58 U/L (16-61); Albumin, Serum 2.6 g/dL (3.2-5.0); Alkaline Phosphatase 677 U/L (45-117); Anion Gap 6 (5-15); BUN 17 mg/dL (7-18); Calcium,Total 8.9 mg/dL (8.5-10.1); Chloride 106 mmol/L (98-107); Cholesterol 226 mg/dL (200); Creatinine, Serum 1.06 mg/dL (0.70-1.30); EST Glomerular Filtration Rate 74 mL/min (>60); Est Glom Filt Rate - Afr Amer 89 mL/min (>60); GGTP 417 U/L (15-85); Globulin 4.9 g/dL (2.2-4.2); Glucose 98 mg/dL (74-106); High Density Lipoprotein 39 mg/dL; Magnesium 1.4 mg/dL (1.6-2.6); Potassium 4.2 mmol/L (3.5-5.1); Protein, Total 7.5 g/dL (6.4-8.2); Sodium Level 137 mmol/L (136-145); Triglycerides 163 mg/dL; Very Low Density Lipoprotein 33 mg/dL (5-40)
[2019-08-28 08:55] LABS: Prograf-FK506 TO CCF/UNIV MAILED SPECIMEN
== END ==
PROVIDERS: PCP Internal Medicine
DX: K76.9 Liver disease, unspecified (principal); Z94.4 Liver transplant status; Z41.8 Encounter for other procedures for purposes other than remedying health state; E61.2 Magnesium deficiency; Z48.23 Encounter for aftercare following liver transplant; E83.30 Disorder of phosphorus metabolism, unspecified; R73.02 Impaired glucose tolerance (oral)
CPT/HCPCS: 36415; 80053; 80061; 82977; 83735; 84100; 85025

== ENCOUNTER → 2019-09-12 04:26 | Outpatient (CLI) | payer MEDICARE, OTHER, SELFPAY ==
[2019-09-12 09:08] LABS: Absolute Lymphocyte Count 0.76 X10^3/uL (0.83-4.51); Absolute Neutrophil Count 6.4 X10^3/uL (2.0-7.7); Basophil# 0.03 X10^3/uL; Basophil% 0.4 % (0-1); Eosinophil# 0.09 X10^3/uL; Eosinophils% 1.2 % (0-5); Hematocrit 41.5 % (40-54); Hemoglobin 13.4 g/dL (13.0-16.5); Lymphocyte # 0.76 X10^3/ul (4.0); Lymphocyte % 9.7 % (19-41); Mean Corp Hgb Conc 32.3 g/dL (32-36); Mean Corpuscular Hgb 26.4 pg (27.0-32.0); Mean Corpuscular Volume 81.9 fL (80-94); Mean Platelet Vol. 11.4 fl (6.2-12.0); Monocyte# 0.53 X10^3/uL; Monocyte% 6.8 % (0-10); NRBC Flagged by Analyzer 0 % (0-5); Neutrophil # 6.35 X10^3/uL (2.7-7.7); Neutrophil % 81.1 % (47-70); Platelet Count 120 K/mm3 (150-450); RBC Distribution Width CV 19.7 % (11.6-14.6); RBC Distribution Width SD 56.1 fl (35.1-43.9); Red Blood Count 5.07 M/mm3 (4.6-6.2); White Blood Count 7.8 K/mm3 (4.4-11.0)
[2019-09-12 09:15] LABS: ALB/GLOB Ratio 0.5 RATIO (0.9-2.4); AST(SGOT) 159 U/L (15-37); Alanine Aminotransfer ALT/SGPT 70 U/L (16-61); Albumin, Serum 2.6 g/dL (3.2-5.0); Alkaline Phosphatase 639 U/L (45-117); Anion Gap 7 (5-15); BUN 14 mg/dL (7-18); BUN/Creat Ratio 13.2 RATIO (10-20); Calcium,Total 8.9 mg/dL (8.5-10.1); Chloride 107 mmol/L (98-107); Creatinine, Serum 1.06 mg/dL (0.70-1.30); EST Glomerular Filtration Rate 74 mL/min (>60); Est Glom Filt Rate - Afr Amer 89 mL/min (>60); GGTP 372 U/L (15-85); Globulin 4.8 g/dL (2.2-4.2); Glucose 107 mg/dL (74-106); Magnesium 1.4 mg/dL (1.6-2.6); Phosphorus 2.7 mg/dL (2.5-4.9); Potassium 4.4 mmol/L (3.5-5.1); Protein, Total 7.4 g/dL (6.4-8.2); Sodium Level 138 mmol/L (136-145)
[2019-09-12 09:53] LABS: Prograf-FK506 TO CCF/UNIV MAILED SPECIMEN
== END ==
PROVIDERS: PCP Internal Medicine
DX: Z01.812 Encounter for preprocedural laboratory examination (principal); K76.9 Liver disease, unspecified; Z48.23 Encounter for aftercare following liver transplant; Z94.4 Liver transplant status; Z41.8 Encounter for other procedures for purposes other than remedying health state; E61.2 Magnesium deficiency; R73.02 Impaired glucose tolerance (oral); Z01.818 Encounter for other preprocedural examination
CPT/HCPCS: 36415; 80053; 82977; 83735; 84100; 85025

== ENCOUNTER → 2019-09-25 | Outpatient (CLI) | payer MEDICARE, OTHER, SELFPAY ==
[2019-09-25 08:48] LABS: Absolute Lymphocyte Count 0.91 X10^3/uL (0.83-4.51); Absolute Neutrophil Count 4.6 X10^3/uL (2.0-7.7); Basophil# 0.04 X10^3/uL; Basophil% 0.7 % (0-1); Eosinophil# 0.09 X10^3/uL; Eosinophils% 1.5 % (0-5); Hematocrit 41.4 % (40-54); Hemoglobin 13.5 g/dL (13.0-16.5); Lymphocyte # 0.91 X10^3/ul (4.0); Lymphocyte % 15.3 % (19-41); Mean Corp Hgb Conc 32.6 g/dL (32-36); Mean Corpuscular Hgb 26.9 pg (27.0-32.0); Mean Corpuscular Volume 82.6 fL (80-94); Mean Platelet Vol. 10.9 fl (6.2-12.0); Monocyte# 0.29 X10^3/uL; Monocyte% 4.9 % (0-10); NRBC Flagged by Analyzer 0 % (0-5); Neutrophil # 4.59 X10^3/uL (2.7-7.7); Neutrophil % 77.1 % (47-70); Platelet Count 124 K/mm3 (150-450); RBC Distribution Width CV 19.3 % (11.6-14.6); RBC Distribution Width SD 56.8 fl (35.1-43.9); Red Blood Count 5.01 M/mm3 (4.6-6.2)
[2019-09-25 09:04] LABS: ALB/GLOB Ratio 0.6 RATIO (0.9-2.4); AST(SGOT) 88 U/L (15-37); Alanine Aminotransfer ALT/SGPT 39 U/L (16-61); Albumin, Serum 2.5 g/dL (3.2-5.0); Alkaline Phosphatase 503 U/L (45-117); Anion Gap 6 (5-15); BUN 16 mg/dL (7-18); BUN/Creat Ratio 15.5 RATIO (10-20); Calcium,Total 8.7 mg/dL (8.5-10.1); Chloride 107 mmol/L (98-107); Cholesterol 222 mg/dL (200); Creatinine, Serum 1.03 mg/dL (0.70-1.30); EST Glomerular Filtration Rate 76 mL/min (>60); Est Glom Filt Rate - Afr Amer 92 mL/min (>60); GGTP 285 U/L (15-85); Globulin 4.5 g/dL (2.2-4.2); Glucose 93 mg/dL (74-106); High Density Lipoprotein 35 mg/dL; Magnesium 1.5 mg/dL (1.6-2.6); Phosphorus 2.7 mg/dL (2.5-4.9); Potassium 4.2 mmol/L (3.5-5.1); Sodium Level 139 mmol/L (136-145); Triglycerides 143 mg/dL; Very Low Density Lipoprotein 29 mg/dL (5-40)
[2019-11-29 16:18] LABS: Prograf-FK506 TO CCF/UNIV MAILED SPECIMEN
== END | disposition home or self-care (01) ==
LOC: LABSPEC 04:42
PROVIDERS: PCP Internal Medicine
DX: K76.9 Liver disease, unspecified (principal); E61.2 Magnesium deficiency; E83.30 Disorder of phosphorus metabolism, unspecified; R73.02 Impaired glucose tolerance (oral); Z48.23 Encounter for aftercare following liver transplant; Z94.4 Liver transplant status; Z41.8 Encounter for other procedures for purposes other than remedying health state
CPT/HCPCS: 36415; 80053; 80061; 80197; 82977; 83735; 84100; 85025

== ENCOUNTER → 2019-10-09 04:08 | Outpatient (CLI) | payer MEDICARE, OTHER, SELFPAY ==
[2019-10-09 09:03] LABS: Absolute Lymphocyte Count 1.42 X10^3/uL (0.83-4.51); Absolute Neutrophil Count 4.2 X10^3/uL (2.0-7.7); Basophil# 0.02 X10^3/uL; Basophil% 0.3 % (0-1); Eosinophil# 0.13 X10^3/uL; Eosinophils% 2.1 % (0-5); Hematocrit 42.6 % (40-54); Hemoglobin 13.5 g/dL (13.0-16.5); Lymphocyte # 1.42 X10^3/ul (4.0); Lymphocyte % 22.6 % (19-41); Mean Corp Hgb Conc 31.7 g/dL (32-36); Mean Corpuscular Hgb 27.2 pg (27.0-32.0); Mean Corpuscular Volume 85.9 fL (80-94); Mean Platelet Vol. 10.5 fl (6.2-12.0); Monocyte% 7.9 % (0-10); NRBC Flagged by Analyzer 0 % (0-5); Neutrophil % 66.8 % (47-70); POSITIVE MORPHOLOGY YES; Platelet Count 130 K/mm3 (150-450); RBC Distribution Width CV 20.4 % (11.6-14.6); RBC Distribution Width SD 61.6 fl (35.1-43.9); Red Blood Count 4.96 M/mm3 (4.6-6.2); White Blood Count 6.3 K/mm3 (4.4-11.0)
[2019-10-09 09:05] LABS: Differential Indicated SCAN CRITERIA MET
[2019-10-09 09:28] LABS: ALB/GLOB Ratio 0.5 RATIO (0.9-2.4); AST(SGOT) 103 U/L (15-37); Alanine Aminotransfer ALT/SGPT 46 U/L (16-61); Albumin, Serum 2.6 g/dL (3.2-5.0); Alkaline Phosphatase 543 U/L (45-117); Anion Gap 8 (5-15); BUN 19 mg/dL (7-18); BUN/Creat Ratio 16.8 RATIO (10-20); Calcium,Total 8.8 mg/dL (8.5-10.1); Chloride 108 mmol/L (98-107); Creatinine, Serum 1.13 mg/dL (0.70-1.30); EST Glomerular Filtration Rate 69 mL/min (>60); Est Glom Filt Rate - Afr Amer 83 mL/min (>60); GGTP 279 U/L (15-85); Glucose 89 mg/dL (74-106); Magnesium 1.6 mg/dL (1.6-2.6); Phosphorus 2.4 mg/dL (2.5-4.9); Potassium 3.9 mmol/L (3.5-5.1); Protein, Total 7.6 g/dL (6.4-8.2); Sodium Level 139 mmol/L (136-145)
[2019-10-09 09:41] LABS: Anisocytosis 1+
[2019-10-09 09:49] LABS: Prograf-FK506 TO CCF/UNIV MAILED SPECIMEN
== END ==
PROVIDERS: PCP Internal Medicine
DX: Z01.818 Encounter for other preprocedural examination (principal); Z01.812 Encounter for preprocedural laboratory examination; K76.9 Liver disease, unspecified; Z48.23 Encounter for aftercare following liver transplant; Z94.4 Liver transplant status; Z41.8 Encounter for other procedures for purposes other than remedying health state; E61.2 Magnesium deficiency
CPT/HCPCS: 36415; 80053; 82977; 83735; 84100; 85025

== ENCOUNTER → 2019-11-06 | Outpatient (CLI) | payer MEDICARE, OTHER, SELFPAY ==
[2019-11-06 09:08] LABS: Absolute Lymphocyte Count 1.16 X10^3/uL (0.83-4.51); Basophil# 0.04 X10^3/uL; Basophil% 0.5 % (0-1); Eosinophil# 0.12 X10^3/uL; Eosinophils% 1.5 % (0-5); Hematocrit 43.9 % (40-54); Hemoglobin 14.5 g/dL (13.0-16.5); Lymphocyte # 1.16 X10^3/ul (4.0); Lymphocyte % 14.9 % (19-41); Mean Corpuscular Hgb 27.9 pg (27.0-32.0); Mean Corpuscular Volume 84.6 fL (80-94); Mean Platelet Vol. 10.4 fl (6.2-12.0); Monocyte# 0.45 X10^3/uL; Monocyte% 5.8 % (0-10); NRBC Flagged by Analyzer 0 % (0-5); Neutrophil # 5.98 X10^3/uL (2.7-7.7); Neutrophil % 76.8 % (47-70); POSITIVE MORPHOLOGY YES; Platelet Count 119 K/mm3 (150-450); RBC Distribution Width CV 20.3 % (11.6-14.6); RBC Distribution Width SD 61.4 fl (35.1-43.9); Red Blood Count 5.19 M/mm3 (4.6-6.2); White Blood Count 7.8 K/mm3 (4.4-11.0)
[2019-11-06 09:11] LABS: Differential Indicated SCAN CRITERIA MET
[2019-11-06 09:12] LABS: ALB/GLOB Ratio 0.6 RATIO (0.9-2.4); AST(SGOT) 90 U/L (15-37); Alanine Aminotransfer ALT/SGPT 37 U/L (16-61); Albumin, Serum 2.6 g/dL (3.2-5.0); Alkaline Phosphatase 477 U/L (45-117); Anion Gap 7 (5-15); BUN 20 mg/dL (7-18); Calcium,Total 8.7 mg/dL (8.5-10.1); Chloride 110 mmol/L (98-107); Creatinine, Serum 1.43 mg/dL (0.70-1.30); EST Glomerular Filtration Rate 52 mL/min (>60); Est Glom Filt Rate - Afr Amer 63 mL/min (>60); GGTP 202 U/L (15-85); Globulin 4.4 g/dL (2.2-4.2); Glucose 87 mg/dL (74-106); Magnesium 1.3 mg/dL (1.6-2.6); Phosphorus 3.2 mg/dL (2.5-4.9); Potassium 4.4 mmol/L (3.5-5.1); Sodium Level 139 mmol/L (136-145)
[2019-11-06 10:05] LABS: Anisocytosis 1+
[2019-11-06 11:33] LABS: Prograf-FK506 TO CCF/UNIV MAILED SPECIMEN
== END | disposition home or self-care (01) ==
LOC: LABSPEC 04:53
PROVIDERS: PCP Internal Medicine
DX: K76.9 Liver disease, unspecified (principal); E61.2 Magnesium deficiency; R73.02 Impaired glucose tolerance (oral); Z94.4 Liver transplant status; Z41.8 Encounter for other procedures for purposes other than remedying health state; Z48.23 Encounter for aftercare following liver transplant
CPT/HCPCS: 36415; 80053; 82977; 83735; 84100; 85025; 94799; C9803

== ENCOUNTER → 2019-11-20 08:15 | Outpatient (CLI) | payer MEDICARE, OTHER, SELFPAY ==
[2019-11-20 09:38] LABS: Absolute Lymphocyte Count 1.18 X10^3/uL (0.83-4.51); Absolute Neutrophil Count 4.5 X10^3/uL (2.0-7.7); Basophil# 0.04 X10^3/uL; Basophil% 0.6 % (0-1); Eosinophil# 0.13 X10^3/uL; Eosinophils% 2.1 % (0-5); Hematocrit 44.3 % (40-54); Hemoglobin 14.5 g/dL (13.0-16.5); Lymphocyte # 1.18 X10^3/ul (4.0); Mean Corp Hgb Conc 32.7 g/dL (32-36); Mean Corpuscular Volume 85.5 fL (80-94); Mean Platelet Vol. 12.4 fl (6.2-12.0); Monocyte# 0.39 X10^3/uL; Monocyte% 6.3 % (0-10); NRBC Flagged by Analyzer 0 % (0-5); Neutrophil # 4.46 X10^3/uL (2.7-7.7); Neutrophil % 71.7 % (47-70); POSITIVE COUNT YES; POSITIVE MORPHOLOGY YES; Platelet Count 90 K/mm3 (150-450); RBC Distribution Width CV 20.4 % (11.6-14.6); RBC Distribution Width SD 62.1 fl (35.1-43.9); Red Blood Count 5.18 M/mm3 (4.6-6.2); White Blood Count 6.2 K/mm3 (4.4-11.0)
[2019-11-20 09:39] LABS: Differential Indicated SCAN CRITERIA MET
[2019-11-20 10:04] LABS: ALB/GLOB Ratio 0.5 RATIO (0.9-2.4); AST(SGOT) 81 U/L (15-37); Alanine Aminotransfer ALT/SGPT 33 U/L (16-61); Albumin, Serum 2.3 g/dL (3.2-5.0); Alkaline Phosphatase 442 U/L (45-117); Anion Gap 8 (5-15); BUN 19 mg/dL (7-18); BUN/Creat Ratio 13.4 RATIO (10-20); Calcium,Total 8.5 mg/dL (8.5-10.1); Chloride 107 mmol/L (98-107); Creatinine, Serum 1.42 mg/dL (0.70-1.30); EST Glomerular Filtration Rate 53 mL/min (>60); Est Glom Filt Rate - Afr Amer 64 mL/min (>60); GGTP 181 U/L (15-85); Globulin 4.4 g/dL (2.2-4.2); Glucose 86 mg/dL (74-106); Magnesium 1.2 mg/dL (1.6-2.6); Potassium 3.9 mmol/L (3.5-5.1); Protein, Total 6.7 g/dL (6.4-8.2); Sodium Level 137 mmol/L (136-145)
[2019-11-20 10:10] LABS: Anisocytosis 1+; Platelet Estimate MOD DEC (ADEQ)
[2019-11-20 10:25] LABS: Prograf-FK506 TO CCF/UNIV MAILED SPECIMEN
== END ==
PROVIDERS: PCP Internal Medicine
DX: K76.9 Liver disease, unspecified (principal); Z48.23 Encounter for aftercare following liver transplant; Z41.8 Encounter for other procedures for purposes other than remedying health state; R73.02 Impaired glucose tolerance (oral)
CPT/HCPCS: 36415; 80053; 82977; 83735; 84100; 85025

== ENCOUNTER → 2019-12-04 04:09 | Outpatient (CLI) | payer MEDICARE, OTHER, SELFPAY ==
[2019-12-04 08:44] LABS: Absolute Lymphocyte Count 2.71 X10^3/uL (0.83-4.51); Absolute Neutrophil Count 5.7 X10^3/uL (2.0-7.7); Basophil# 0.08 X10^3/uL; Basophil% 0.8 % (0-1); Eosinophil# 0.29 X10^3/uL; Lymphocyte # 2.71 X10^3/ul (4.0); Lymphocyte % 28.3 % (19-41); Mean Corp Hgb Conc 33.3 g/dL (32-36); Mean Corpuscular Hgb 28.8 pg (27.0-32.0); Mean Corpuscular Volume 86.5 fL (80-94); Monocyte# 0.76 X10^3/uL; Monocyte% 7.9 % (0-10); NRBC Flagged by Analyzer 0 % (0-5); Neutrophil # 5.69 X10^3/uL (2.7-7.7); Neutrophil % 59.5 % (47-70); POSITIVE MORPHOLOGY YES; Platelet Count 159 K/mm3 (150-450); RBC Distribution Width CV 20.7 % (11.6-14.6); RBC Distribution Width SD 62.7 fl (35.1-43.9); Red Blood Count 5.55 M/mm3 (4.6-6.2); White Blood Count 9.6 K/mm3 (4.4-11.0)
[2019-12-04 08:48] LABS: Differential Indicated SCAN CRITERIA MET
[2019-12-04 08:52] LABS: ALB/GLOB Ratio 0.5 RATIO (0.9-2.4); AST(SGOT) 94 U/L (15-37); Alanine Aminotransfer ALT/SGPT 34 U/L (16-61); Albumin, Serum 2.5 g/dL (3.2-5.0); Alkaline Phosphatase 515 U/L (45-117); Anion Gap 9 (5-15); BUN 18 mg/dL (7-18); BUN/Creat Ratio 12.9 RATIO (10-20); Calcium,Total 8.6 mg/dL (8.5-10.1); Chloride 104 mmol/L (98-107); Creatinine, Serum 1.39 mg/dL (0.70-1.30); EST Glomerular Filtration Rate 54 mL/min (>60); Est Glom Filt Rate - Afr Amer 65 mL/min (>60); GGTP 198 U/L (15-85); Globulin 4.8 g/dL (2.2-4.2); Glucose 69 mg/dL (74-106); Magnesium 1.5 mg/dL (1.6-2.6); Potassium 4.2 mmol/L (3.5-5.1); Protein, Total 7.3 g/dL (6.4-8.2); Sodium Level 136 mmol/L (136-145)
[2019-12-04 09:17] LABS: Anisocytosis 2+; Red Cell Morphology N CHROM NORMAL (NORM C&C)
[2019-12-04 09:25] LABS: Prograf-FK506 TO CCF/UNIV MAILED SPECIMEN
== END ==
PROVIDERS: PCP Internal Medicine
DX: Z48.23 Encounter for aftercare following liver transplant (principal); K76.9 Liver disease, unspecified; Z94.4 Liver transplant status; E61.2 Magnesium deficiency; E83.30 Disorder of phosphorus metabolism, unspecified; Z41.8 Encounter for other procedures for purposes other than remedying health state
CPT/HCPCS: 36415; 80053; 82977; 83735; 84100; 85025

== ENCOUNTER → 2019-12-18 04:37 | Outpatient (CLI) | payer MEDICARE, OTHER, SELFPAY ==
[2019-12-18 08:53] LABS: Absolute Lymphocyte Count 1.23 X10^3/uL (0.83-4.51); Absolute Neutrophil Count 5.4 X10^3/uL (2.0-7.7); Basophil# 0.02 X10^3/uL; Basophil% 0.3 % (0-1); Eosinophil# 0.16 X10^3/uL; Eosinophils% 2.1 % (0-5); Hematocrit 43.2 % (40-54); Hemoglobin 14.4 g/dL (13.0-16.5); Lymphocyte # 1.23 X10^3/ul (4.0); Lymphocyte % 15.9 % (19-41); Mean Corp Hgb Conc 33.3 g/dL (32-36); Mean Corpuscular Hgb 29.4 pg (27.0-32.0); Mean Corpuscular Volume 88.3 fL (80-94); Mean Platelet Vol. 10.3 fl (6.2-12.0); Monocyte# 0.91 X10^3/uL; Monocyte% 11.8 % (0-10); NRBC Flagged by Analyzer 0 % (0-5); Neutrophil # 5.36 X10^3/uL (2.7-7.7); Neutrophil % 69.4 % (47-70); POSITIVE MORPHOLOGY YES; Platelet Count 112 K/mm3 (150-450); RBC Distribution Width CV 20.7 % (11.6-14.6); RBC Distribution Width SD 63.7 fl (35.1-43.9); Red Blood Count 4.89 M/mm3 (4.6-6.2); White Blood Count 7.7 K/mm3 (4.4-11.0)
[2019-12-18 08:58] LABS: Differential Indicated SCAN CRITERIA MET
[2019-12-18 09:12] LABS: ALB/GLOB Ratio 0.5 RATIO (0.9-2.4); AST(SGOT) 119 U/L (15-37); Alanine Aminotransfer ALT/SGPT 39 U/L (16-61); Albumin, Serum 2.2 g/dL (3.2-5.0); Alkaline Phosphatase 520 U/L (45-117); Anion Gap 5 (5-15); BUN 34 mg/dL (7-18); BUN/Creat Ratio 16.5 RATIO (10-20); Calcium,Total 8.2 mg/dL (8.5-10.1); Chloride 105 mmol/L (98-107); Creatinine, Serum 2.06 mg/dL (0.70-1.30); EST Glomerular Filtration Rate 34 mL/min (>60); Est Glom Filt Rate - Afr Amer 41 mL/min (>60); GGTP 198 U/L (15-85); Globulin 4.3 g/dL (2.2-4.2); Glucose 119 mg/dL (74-106); Magnesium 1.6 mg/dL (1.6-2.6); Phosphorus 2.6 mg/dL (2.5-4.9); Potassium 3.8 mmol/L (3.5-5.1); Protein, Total 6.5 g/dL (6.4-8.2); Sodium Level 135 mmol/L (136-145)
[2019-12-18 09:23] LABS: Anisocytosis 1+; Platelet Estimate SLT DEC (ADEQ)
[2019-12-18 09:45] LABS: Prograf-FK506 TO CCF/UNIV MAILED SPECIMEN
== END ==
PROVIDERS: PCP Internal Medicine
DX: Z48.23 Encounter for aftercare following liver transplant (principal); Z94.4 Liver transplant status; Z41.8 Encounter for other procedures for purposes other than remedying health state; E61.2 Magnesium deficiency; E83.30 Disorder of phosphorus metabolism, unspecified; R73.02 Impaired glucose tolerance (oral); K76.9 Liver disease, unspecified
CPT/HCPCS: 36415; 80053; 82977; 83735; 84100; 85025

== ENCOUNTER → 2020-01-01 04:29 | Outpatient (CLI) | payer MEDICARE, OTHER, SELFPAY ==
[2020-01-01 08:58] LABS: Absolute Lymphocyte Count 0.85 X10^3/uL (0.83-4.51); Absolute Neutrophil Count 6.7 X10^3/uL (2.0-7.7); Basophil# 0.03 X10^3/uL; Basophil% 0.4 % (0-1); Eosinophil# 0.05 X10^3/uL; Eosinophils% 0.6 % (0-5); Hematocrit 36.6 % (40-54); Hemoglobin 12.3 g/dL (13.0-16.5); Lymphocyte # 0.85 X10^3/ul (4.0); Lymphocyte % 10.1 % (19-41); Mean Corp Hgb Conc 33.6 g/dL (32-36); Mean Corpuscular Hgb 29.7 pg (27.0-32.0); Mean Corpuscular Volume 88.4 fL (80-94); Mean Platelet Vol. 10.1 fl (6.2-12.0); Monocyte# 0.68 X10^3/uL; Monocyte% 8.1 % (0-10); NRBC Flagged by Analyzer 0 % (0-5); Neutrophil # 6.66 X10^3/uL (2.7-7.7); POSITIVE MORPHOLOGY YES; Platelet Count 195 K/mm3 (150-450); RBC Distribution Width CV 20.1 % (11.6-14.6); RBC Distribution Width SD 64.4 fl (35.1-43.9); Red Blood Count 4.14 M/mm3 (4.6-6.2); White Blood Count 8.4 K/mm3 (4.4-11.0)
[2020-01-01 09:19] LABS: Differential Indicated SCAN CRITERIA MET
[2020-01-01 09:28] LABS: Anisocytosis 1+; Differential Comment SCANNED; Hypochromasia 1+
[2020-01-01 09:45] LABS: ALB/GLOB Ratio 0.4 RATIO (0.9-2.4); AST(SGOT) 108 U/L (15-37); Alanine Aminotransfer ALT/SGPT 31 U/L (16-61); Albumin, Serum 2.1 g/dL (3.2-5.0); Alkaline Phosphatase 796 U/L (45-117); Anion Gap 6 (5-15); BUN 29 mg/dL (7-18); BUN/Creat Ratio 14.9 RATIO (10-20); Calcium,Total 8.6 mg/dL (8.5-10.1); Chloride 103 mmol/L (98-107); Cholesterol 226 mg/dL (200); Creatinine, Serum 1.95 mg/dL (0.70-1.30); EST Glomerular Filtration Rate 37 mL/min (>60); Est Glom Filt Rate - Afr Amer 44 mL/min (>60); GGTP 439 U/L (15-85); Globulin 4.9 g/dL (2.2-4.2); Glucose 103 mg/dL (74-106); High Density Lipoprotein 17 mg/dL; Phosphorus 2.7 mg/dL (2.5-4.9); Potassium 4.1 mmol/L (3.5-5.1); Sodium Level 134 mmol/L (136-145); Triglycerides 104 mg/dL; Very Low Density Lipoprotein 21 mg/dL (5-40)
[2020-01-01 09:49] LABS: Prograf-FK506 TO CCF/UNIV MAILED SPECIMEN
== END ==
PROVIDERS: PCP Internal Medicine
DX: Z41.8 Encounter for other procedures for purposes other than remedying health state (principal); K76.9 Liver disease, unspecified; E61.2 Magnesium deficiency; E83.30 Disorder of phosphorus metabolism, unspecified; R73.02 Impaired glucose tolerance (oral); Z94.4 Liver transplant status; Z48.23 Encounter for aftercare following liver transplant
CPT/HCPCS: 36415; 80053; 80061; 82977; 83735; 84100; 85025

== ENCOUNTER → 2020-01-16 | Outpatient (CLI) | payer MEDICARE, OTHER, SELFPAY ==
[2020-01-16 09:29] LABS: Absolute Neutrophil Count 6.8 X10^3/uL (2.0-7.7); Basophil# 0.05 X10^3/uL; Basophil% 0.6 % (0-1); Eosinophil# 0.06 X10^3/uL; Eosinophils% 0.7 % (0-5); Hematocrit 31.1 % (40-54); Hemoglobin 10.1 g/dL (13.0-16.5); Lymphocyte % 10.4 % (19-41); Mean Corp Hgb Conc 32.5 g/dL (32-36); Mean Corpuscular Hgb 30.5 pg (27.0-32.0); Mean Platelet Vol. 9.9 fl (6.2-12.0); Monocyte% 9.2 % (0-10); NRBC Flagged by Analyzer 0 % (0-5); Neutrophil # 6.76 X10^3/uL (2.7-7.7); Neutrophil % 77.8 % (47-70); POSITIVE MORPHOLOGY YES; Platelet Count 191 K/mm3 (150-450); RBC Distribution Width CV 19.4 % (11.6-14.6); RBC Distribution Width SD 67.3 fl (35.1-43.9); Red Blood Count 3.31 M/mm3 (4.6-6.2); White Blood Count 8.7 K/mm3 (4.4-11.0)
[2020-01-16 09:31] LABS: Differential Indicated SCAN CRITERIA MET
[2020-01-16 09:49] LABS: ALB/GLOB Ratio 0.4 RATIO (0.9-2.4); AST(SGOT) 87 U/L (15-37); Alanine Aminotransfer ALT/SGPT 34 U/L (16-61); Albumin, Serum 1.9 g/dL (3.2-5.0); Alkaline Phosphatase 705 U/L (45-117); Anion Gap 5 (5-15); BUN 19 mg/dL (7-18); BUN/Creat Ratio 13.7 RATIO (10-20); Calcium,Total 8.7 mg/dL (8.5-10.1); Chloride 106 mmol/L (98-107); Creatinine, Serum 1.39 mg/dL (0.70-1.30); EST Glomerular Filtration Rate 54 mL/min (>60); Est Glom Filt Rate - Afr Amer 65 mL/min (>60); GGTP 401 U/L (15-85); Globulin 4.8 g/dL (2.2-4.2); Glucose 112 mg/dL (74-106); Magnesium 2.1 mg/dL (1.6-2.6); Phosphorus 2.5 mg/dL (2.5-4.9); Protein, Total 6.7 g/dL (6.4-8.2); Sodium Level 136 mmol/L (136-145)
[2020-01-16 09:58] LABS: Burr Cells 1+; Differential Comment SCANNED
[2020-01-16 09:59] LABS: Anisocytosis 1+; Hypochromasia 1+
[2020-01-16 10:20] LABS: Prograf-FK506 TO CCF/UNIV MAILED SPECIMEN
== END | disposition home or self-care (01) ==
LOC: LABSPEC 05:36
PROVIDERS: PCP Internal Medicine
DX: Z48.23 Encounter for aftercare following liver transplant (principal); K76.9 Liver disease, unspecified; Z94.4 Liver transplant status; E83.30 Disorder of phosphorus metabolism, unspecified; R73.02 Impaired glucose tolerance (oral); Z41.8 Encounter for other procedures for purposes other than remedying health state
CPT/HCPCS: 36415; 80053; 82977; 83735; 84100; 85025

== ENCOUNTER → 2020-01-29 | Outpatient (CLI) | payer MEDICARE, OTHER, SELFPAY ==
[2020-01-29 09:24] LABS: Absolute Lymphocyte Count 0.87 X10^3/uL (0.83-4.51); Absolute Neutrophil Count 6.5 X10^3/uL (2.0-7.7); Basophil# 0.03 X10^3/uL; Basophil% 0.4 % (0-1); Eosinophil# 0.05 X10^3/uL; Eosinophils% 0.6 % (0-5); Hematocrit 31.5 % (40-54); Lymphocyte # 0.87 X10^3/ul (4.0); Lymphocyte % 10.5 % (19-41); Mean Corp Hgb Conc 31.7 g/dL (32-36); Mean Corpuscular Hgb 30.1 pg (27.0-32.0); Mean Corpuscular Volume 94.9 fL (80-94); Mean Platelet Vol. 10.1 fl (6.2-12.0); Monocyte# 0.72 X10^3/uL; Monocyte% 8.7 % (0-10); NRBC Flagged by Analyzer 0 % (0-5); Neutrophil # 6.49 X10^3/uL (2.7-7.7); Neutrophil % 78.5 % (47-70); Platelet Count 204 K/mm3 (150-450); RBC Distribution Width CV 16.9 % (11.6-14.6); RBC Distribution Width SD 59.4 fl (35.1-43.9); Red Blood Count 3.32 M/mm3 (4.6-6.2); White Blood Count 8.3 K/mm3 (4.4-11.0)
[2020-01-29 09:43] LABS: ALB/GLOB Ratio 0.4 RATIO (0.9-2.4); AST(SGOT) 82 U/L (15-37); Alanine Aminotransfer ALT/SGPT 26 U/L (16-61); Alkaline Phosphatase 650 U/L (45-117); Anion Gap 7 (5-15); BUN 19 mg/dL (7-18); Calcium,Total 8.4 mg/dL (8.5-10.1); Chloride 105 mmol/L (98-107); Creatinine, Serum 1.27 mg/dL (0.70-1.30); EST Glomerular Filtration Rate 60 mL/min (>60); Est Glom Filt Rate - Afr Amer 72 mL/min (>60); GGTP 414 U/L (15-85); Globulin 4.5 g/dL (2.2-4.2); Glucose 128 mg/dL (74-106); Phosphorus 2.5 mg/dL (2.5-4.9); Potassium 3.9 mmol/L (3.5-5.1); Protein, Total 6.5 g/dL (6.4-8.2); Sodium Level 135 mmol/L (136-145)
[2020-01-29 10:06] LABS: Prograf-FK506 TO CCF/UNIV MAILED SPECIMEN
[2020-01-29 10:15] LABS: Amphetamine Urine VISTA NEGATIVE (<1000 ng/mL); Barbiturate Urine VISTA NEGATIVE (< 200 ng/mL); Benzodiazepine Urine VISTA NEGATIVE (< 200 ng/mL); Cocaine Urine VISTA NEGATIVE (< 300 ng/mL); Ecstacy Urine VISTA NEGATIVE (< 500 ng/mL); Methadone Urine VISTA NEGATIVE (< 300 ng/mL); PCP Urine VISTA NEGATIVE (< 25 ng/mL); THC Urine VISTA NEGATIVE (< 50 ng/mL); Vista UDS pH Range 5
== END | disposition home or self-care (01) ==
LOC: LABSPEC 04:39
PROVIDERS: PCP Internal Medicine
DX: Z48.23 Encounter for aftercare following liver transplant (principal); K76.9 Liver disease, unspecified; Z94.4 Liver transplant status; G89.3 Neoplasm related pain (acute) (chronic); Z41.8 Encounter for other procedures for purposes other than remedying health state; E61.2 Magnesium deficiency; E83.30 Disorder of phosphorus metabolism, unspecified; R73.02 Impaired glucose tolerance (oral); Z79.891 Long term (current) use of opiate analgesic
CPT/HCPCS: 36415; 80053; 80307; 82977; 83735; 84100; 85025

== ENCOUNTER 2020-02-16 09:41 | Outpatient (RCR) | payer MEDICARE, OTHER, SELFPAY ==
[2020-02-16 10:03] LABS: Absolute Lymphocyte Count 0.75 X10^3/uL (0.83-4.51); Absolute Neutrophil Count 9.4 X10^3/uL (2.0-7.7); Basophil# 0.04 X10^3/uL; Basophil% 0.4 % (0-1); Eosinophil# 0.12 X10^3/uL; Eosinophils% 1.1 % (0-5); Hematocrit 36.7 % (40-54); Hemoglobin 12.2 g/dL (13.0-16.5); Lymphocyte # 0.75 X10^3/ul (4.0); Lymphocyte % 6.6 % (19-41); Mean Corp Hgb Conc 33.2 g/dL (32-36); Mean Corpuscular Hgb 29.5 pg (27.0-32.0); Mean Corpuscular Volume 88.6 fL (80-94); Mean Platelet Vol. 10.3 fl (6.2-12.0); Monocyte# 0.91 X10^3/uL; Monocyte% 8.1 % (0-10); NRBC Flagged by Analyzer 0 % (0-5); Neutrophil # 9.35 X10^3/uL (2.7-7.7); Neutrophil % 82.8 % (47-70); Platelet Count 253 K/mm3 (150-450); RBC Distribution Width CV 16.3 % (11.6-14.6); RBC Distribution Width SD 53.1 fl (35.1-43.9); Red Blood Count 4.14 M/mm3 (4.6-6.2); White Blood Count 11.3 K/mm3 (4.4-11.0)
[2020-02-16 10:32] LABS: ALB/GLOB Ratio 0.3 RATIO (0.9-2.4); AST(SGOT) 123 U/L (15-37); Alanine Aminotransfer ALT/SGPT 30 U/L (16-61); Albumin, Serum 1.6 g/dL (3.2-5.0); Alkaline Phosphatase 1007 U/L (45-117); Anion Gap 9 (5-15); BUN 46 mg/dL (7-18); BUN/Creat Ratio 21.8 RATIO (10-20); Chloride 101 mmol/L (98-107); Creatinine, Serum 2.11 mg/dL (0.70-1.30); EST Glomerular Filtration Rate 33 mL/min (>60); Est Glom Filt Rate - Afr Amer 40 mL/min (>60); GGTP 469 U/L (15-85); Globulin 4.7 g/dL (2.2-4.2); Glucose 111 mg/dL (74-106); Magnesium 2.2 mg/dL (1.6-2.6); Phosphorus 2.9 mg/dL (2.5-4.9); Potassium 4.3 mmol/L (3.5-5.1); Protein, Total 6.3 g/dL (6.4-8.2); Sodium Level 131 mmol/L (136-145)
== END 2020-02-16 18:00 | disposition home or self-care (01) ==
LOC: HHLAB 09:41
PROVIDERS: PCP Internal Medicine; Referring Provider Internal Medicine Gastroenterology; Visit Provider Internal Medicine Gastroenterology
DX: K76.9 Liver disease, unspecified (principal)
CPT/HCPCS: 80053; 80197; 82977; 83735; 84100; 85025